=== PATIENT | female | born 1965 | race Caucasian/White ===

== ENCOUNTER 2018-04-26 09:32 | Emergency (ER) | payer OTHER ==
[~2018-04-26] VITALS: Ht 172.7 cm; Wt 96.2 kg
[2018-04-26] MEDS ORDERED: FLUOXETINE HCL40 M1 PO (11:40)
[2018-04-26] MEDS ORDERED: OMEPRAZOLE40 M1 PO (11:40)
--- NOTE | 2018-04-26 11:48 | ED UPPER/LOWER EXTREMITY COMPL ---
History of Present Illness General Chief Complaint: Upper Extremity Injury Stated Complaint: SENT BY SURGEON FOR EVAL OF RT ARM Source: patient Exam Limitations: no limitations Vital Signs & Intake/Output Vital Signs & Intake/Output Vital Signs Date Time Temp Pulse Resp B/P B/P Pulse O2 O2 Flow FiO2 Mean Ox Delivery Rate 04/26 1303 97.5 94 18 112/64 97 Room Air Room Air 04/26 0936 97.3 110 16 102/65 96 Room Air Allergies Coded Allergies: lactose (Severe, GI DISTRESS 04/26/18) Reconcile Medications Fluoxetine HCl 40 MG CAPSULE 1 CAP PO QAM MENTAL HEALTH (Reported) Omeprazole 40 MG CAPSULE. 1 CAP PO DAILY GI (Reported) Triage Note: 53 Y/O FEMALE C/O R UPPER ARM PAIN SINCE WEDNESDAY - NO KNOWN INJURY OR TRAUMA. STATES SHE HAD BARIATRIC SURGERY IN FEBRUARY AND THEN HAD A FALL IN MARCH (04/13) BUT DOESNT RECALL HURTING ARM. STATES SHE FEELS LIKE SHE CANNOT MOVE ARM DUE TO PAIN. ATE A LOT OF WATERMELON WEDNESDAY AND ATTRIBUTED PAIN TO GAS HOWEVER SAW SURGEON THIS AM WHO SENT PT TO ED FOR FURTHER EVAL. NO SWELLING/BRUISING NOTED. Triage Nurses Notes Reviewed? yes Onset: Abrupt Duration: day(s): (3), constant, getting worse Timing: recent history Severity: moderate, severe Pain/Injury Location: Right: Shoulder. No Modifying Factors: none HPI: 53-year-old female comes into the emergency room with complaints of right shoulder pain. Patient reports that the symptoms been going on for the past 3 days. She had gastric bypass surgery done a little over a month ago. She denies any chest pain shortness of breath abdominal pain. She denies any falls or trauma. She reports that the pain started Wednesday morning and got progressively worse throughout the day and now she cannot lift her arm or moved it all due to severe pain. Pain is located on the right upper arm. Any type of movement at all creates Intense pain. (Jacinto Falk) Past History Travel History Traveled to [place] past 21 day No Medical History Any Pertinent Medical History? see below for history Neurological: NONE EENT: NONE Cardiovascular: NONE Respiratory: NONE Gastrointestinal: NONE Hepatic: NONE Renal: NONE Musculoskeletal: NONE Psychiatric: NONE Endocrine: NONE Blood Disorders: NONE Cancer(s): NONE GLOBE MOUNTER/Reproductive: NONE Surgical History Surgical History: gastric sleeve Psychosocial History What is your primary language Niuean Tobacco Use: Never used Family History Hx Contributory? No (Jacinto Falk) Review of Systems Review of Systems Constitutional: Reports: no symptoms. EENTM: Reports: no symptoms. Respiratory: Reports: no symptoms. Cardiovascular: Reports: no symptoms. Gastrointestinal/Abdominal: Reports: no symptoms. Genitourinary: Reports: no symptoms. Musculoskeletal: Reports: see HPI. Skin: Reports: no symptoms. Neurological/Psychological: Reports: no symptoms. Hematologic/Endocrine: Reports: no symptoms. Immunological: Reports: no symptoms. All Other Systems: Reviewed and Negative (Jacinto Falk) Physical Exam Physical Exam General Appearance: well developed/nourished, mild distress Head: atraumatic Eyes: Bilateral: normal appearance. Ears, Nose, Throat: normal ENT inspection, hearing grossly normal Neck: normal inspection Cardiovascular/Respiratory: no respiratory distress Back: normal inspection Shoulder Right: tenderness over right upper shoulder over the deltoid, tenderness over ac joint, examined Limited secondary to patient unable to move arm at all, pain with any type of abduction, radial pulse 2+, outsewer strength intact, sensation intact, pain along the posterior aspect superior inferior to the scapular spine, Neurologic/Tendon: normal sensation, responds to pain, no pulse deficit Skin: intact, normal color, warm/dry (Jacinto Falk) Progress Differential Diagnosis: contusion, dislocation, fracture, sprain, tendon injury, rotator cuff tendinitis, adhesive capsulitis, Plan of Care: Orders Procedure Date/time Status Durable Medical Equipment 04/26 1205 Active Diagnostic Imaging: Viewed by Me: Radiology Read. Discussed w/RAD: Radiology Read. Radiology Impression: PATIENT: PITO ROLDAN PRESENT AGE: 53 PATIENT ACCOUNT NO: [id number] : 65 LOCATION: [facility] ORDERING PHYSICIAN: Srikanth Diego MD SERVICE DATE: 04/26/18 EXAM TYPE: RAD - XRY- HUMERUS, RIGHT; XRY-SHOULDER COMPLETE-RIGHT EXAMINATION: RIGHT HUMERUS AND RIGHT SHOULDER. CLINICAL INFORMATION: Fall right arm pain. COMPARISON: None. TECHNIQUE : Right humerus 2 views and right shoulder 4 views. FINDINGS: Right shoulder: There is no visible acute fracture, dislocation or subluxation. No bony erosive changes. The soft tissues are normal. Right humerus: There is no visible acute fracture or bony abnormality. The soft tissues are normal. IMPRESSION: Right shoulder: There is no visible acute fracture or dislocation. Right humerus: There is no visible fracture or bony abnormality. DICTATED BY: Som Moralez MD DATE/TIME DICTATED:04/26/181150 [employer] SALES CONSULTANT:OSCAR DATE/TIME TRANSCRIBED:04/26/181150 CONFIDENTIAL, DO NOT COPY WITHOUT APPROPRIATE AUTHORIZATION. <Electronically signed in Other Vendor System> SIGNED BY: Som Moralez MD 04/26/181156 (Jacinto Falk) Departure Departure Disposition: HOME OR SELF CARE Condition: Stable Clinical Impression Primary Impression: Right shoulder pain Referrals: Arthur GIORDANO,Karri Cooley MD,Alonso Stout (PCP/Family) Additional Instructions: Rotator cuff tendinitis versus adhesive capsulitis. Take oxycodone at home as needed for pain. Follow-up with orthopedic doctor. Return if any other concerns worsening symptoms. You will likely require physical therapy for the shoulder. Please go over all results of today's visit with your primary care doctor. Contact your primary care doctor to let them know you were here in the emergency room. There may be nonspecific findings which may not be related to your visit today here in the emergency room but may require further evaluation and chronic monitoring by your primary care doctor. If you had a laceration today the chance of foreign body always remains. You should follow-up with your primary care doctor for recheck in 3-5 days for a wound check. If you had an x-ray done there is a chance that a fracture could have been missed on initial read and you should follow-up with your primary care doctor for repeat x-rays if symptoms persist. If your blood pressure was elevated here in the emergency room please have rechecked by [facility] primary care doctor within the next 48. If you were prescribed a narcotic here in the emergency room or any type of controlled substances you're not allowed to drive while taking this medication or operate any type of heavy machinery. Narcotics can make you feel lightheaded dizziness nausea and can cause constipation. You may need to pick remover a stool softener. Thank you for choosing [facility] emergency room. Please return to the emergency room immediately if you have any other concerns worsening of symptoms. Departure Forms: Customer Survey General Discharge Information Comments 04/26/2018 2:32:59 PM Pain is clearly a musculoskeletal issue. Reproducible worse with any type of movement on exam. Exam very limited secondary to patient's pain. She was referred to orthopedic doctor. Take oxycodone at home as needed for pain. Return if any other concerns. She is not a diabetic. She understands and agrees with plan of care. There is no clinical signs of septic joint. (Jacinto Falk) PA/BINDING NICKER Co-Sign Statement Statement: ED Attending supervision documentation- I saw and evaluated the patient. I have also reviewed all the pertinent lab results and diagnostic results. I agree with the findings and the plan of care as documented in the PA's/BINDING NICKER's documentation. x I have reviewed the ED Record and agree with the PA's/BINDING NICKER's documentation. [] Additions or exceptions (if any) to the PAs/BINDING NICKER's note and plan are summarized below: [] (Brandie GIORDANO,Srikanth) Procedures Splinting Location: right shoulder Pre-Made Type: shoulder mobilizer Splint Applied By: splint applied by me Pre-Proc Neuro Vasc Exam: normal Post-Proc Neuro Vasc Exam: normal (Jacinto Falk)
--- NOTE | 2018-04-26 11:57 | RADIOLOGY REPORT ---
EXAMINATION: RIGHT HUMERUS AND RIGHT SHOULDER. CLINICAL INFORMATION: Fall right arm pain. COMPARISON: None. TECHNIQUE: Right humerus 2 views and right shoulder 4 views. FINDINGS: Right shoulder: There is no visible acute fracture, dislocation or subluxation. No bony erosive changes. The soft tissues are normal. Right humerus: There is no visible acute fracture or bony abnormality. The soft tissues are normal. IMPRESSION: Right shoulder: There is no visible acute fracture or dislocation. Right humerus: There is no visible fracture or bony abnormality.
[2018-04-26 13:03] VITALS: BP 112/64
== END 2018-04-26 13:03 ==
LOC: ERH 09:32
DX: M25.511 Pain in right shoulder (principal)
CPT/HCPCS: 73030-RT; 73060-RT; 96372; J1885